=== PATIENT | male | born 1935 | race Caucasian/White ===

== ENCOUNTER 2020-02-17 16:48 | Inpatient (IN) ==
[2020-02-17 17:14] LABS: Basophils % 0.1 % (0.0-0.8); Eosinophils % 0.2 % (0.00-10.9); Hematocrit 33.4 VOL% (42.0-52.0); Hemoglobin 10.9 GM/DL (14.0-18.0); Immature Granulocytes % 22.2 %; Immature Granulocytes Absolute 2.08 #; Lymphocytes # 0.6 10*3/uL (1.4-4.0); Lymphocytes % 5.9 % (21.2-54.2); Mean Corpuscular HGB Conc 32.6 GM/DL (32-36); Mean Corpuscular Volume 99.4 FL (87-102); Mean Platelet Volume 9.7 FL (9.6-12.0); Monocytes % 17.6 % (1.7-12.7); Platelet Count 128 T/CUMM (130-400); Red Blood Count 3.36 MC/CUMM (3.8-5.5); Red Cell Distribution Width 16.6 % (9.3-17.3); White Blood Count 9.4 T/CUMM (4-12)
[2020-02-17 17:21] LABS: INR 1.2; PT Patient Result 12.4 SECS (9.8-11.9)
[2020-02-17 17:34] LABS: Bilirubin,Total 1.1 MG/DL (0.2-1.0); Calcium 8.2 MG/DL (8.5-10.1); Osmolality,Calculated 274.5 MOS/KG (273-304); Total Protein 7.2 G/DL (6.4-8.3)
[2020-02-17 17:45] LABS: Lymphocytes 6 % (20-55); Platelet Estimate Adequate; Segmented Neutrophils 79 % (50-85); Total Cells Counted 100
[2020-02-17] MEDS ORDERED: FUROSEMIDE 40 MG/4 ML VIAL IV STA (18:12)
[2020-02-17] MEDS ORDERED: ALBUTEROL/IPRATROPIUM 3 ML NEB RESP TX STA (18:12)
[2020-02-17] MEDS ORDERED: ENOXAPARIN 100 MG/ML SYRINGE SUBCUT STA (18:13)
[2020-02-17] MEDS ORDERED: GLUCAGON 1 MG VIAL IM PRN (18:19)
[2020-02-17] MEDS ORDERED: MAGNESIUM SULF RIDER 4 GM in PREMIX 1 EACH IV PRN (18:19)
[2020-02-17] MEDS ORDERED: DEXTROSE 50% 25 GM/50 ML VIAL IV PRN ×2 (18:19)
[2020-02-17] MEDS ORDERED: ZALEPLON 5 MG CAPSULE PO PRN (18:19)
[2020-02-17] MEDS ORDERED: MAGNESIUM SULF RIDER 2 GM in PREMIX 1 EACH IV PRN (18:19)
[2020-02-17] MEDS ORDERED: ONDANSETRON 4 MG/2 ML VIAL IV PRN (18:19)
[2020-02-18] MEDS: ENOXAPARIN 120 MG/0.8 ML SYRINGE SUBCUT SCH ×2 (06:02→19:00)
[2020-02-18 06:21] LABS: Basophils % 0.1 % (0.0-0.8); Eosinophils # 0.1 10*3/uL (0.0-0.87); Eosinophils % 0.5 % (0.00-10.9); Hemoglobin 10.2 GM/DL (14.0-18.0); Immature Granulocytes % 19.3 %; Immature Granulocytes Absolute 1.78 #; Lymphocytes # 0.5 10*3/uL (1.4-4.0); Lymphocytes % 5.3 % (21.2-54.2); Mean Corpuscular HGB Conc 32.9 GM/DL (32-36); Mean Corpuscular Volume 99.4 FL (87-102); Mean Platelet Volume 10.5 FL (9.6-12.0); Monocytes % 11.6 % (1.7-12.7); Neutrophils % 63.2 % (38.7-73.9); Platelet Count 107 T/CUMM (130-400); Red Blood Count 3.12 MC/CUMM (3.8-5.5); Red Cell Distribution Width 16.9 % (9.3-17.3); White Blood Count 9.2 T/CUMM (4-12)
[2020-02-18 06:40] LABS: Albumin 2.7 G/DL (3.4-5.0); Bilirubin,Total 1.6 MG/DL (0.2-1.0); Risk Ratio 2.48; Total Protein 6.5 G/DL (6.4-8.3); VLDL CHOLESTEROL 11.4 MG/DL
[2020-02-18 06:54] LABS: Eosinophils 2 % (0-10); Hypochromasia 1+; Lymphocytes 5 % (20-55); Platelet Estimate Decreased; Segmented Neutrophils 79 % (50-85); Total Cells Counted 100
[2020-02-18 06:55] LABS: Microcytosis 1+
[2020-02-18] MEDS: FUROSEMIDE 40 MG/4 ML VIAL IV SCH ×2 (09:14→15:44)
[2020-02-18] MEDS: PANTOPRAZOLE 40 MG TABLET PO SCH (09:14)
[2020-02-18] MEDS: SKIN HEALING OINT (AQUAPHOR) 50 GM TUBE TOP SCH (15:44)
[2020-02-18 21:38] LABS: Bilirubin,Urine Negative (Negative); Blood, Urine Negative (Negative); Glucose,Urine (UA) Negative (Negative); Hyaline Casts,Urine 15 /LPF (0-3); Ketones,Urine Negative (Negative); Mucus,Urine Occasional /LPF (Occasional); Nitrite,Urine Negative (Negative); Protein,Urine Negative; RBC,Urine 1 /HPF (0-4); Urine Appearance CLEAR (Clear); Urine Color Yellow (Yellow); Urine Specific Gravity 1.016 (1.001-1.035); Urine Urobilinogen < 2.0 EU/DL (0.2-1.0); WBC,Urine <1 /HPF (0-6)
[2020-02-19] MEDS: ENOXAPARIN 120 MG/0.8 ML SYRINGE SUBCUT SCH ×2 (06:01→17:39)
[2020-02-19 06:32] LABS: Eosinophils # 0.1 10*3/uL (0.0-0.87); Hematocrit 30.7 VOL% (42.0-52.0); Hemoglobin 10.2 GM/DL (14.0-18.0); Immature Granulocytes % 19.1 %; Immature Granulocytes Absolute 1.26 #; Lymphocytes # 0.7 10*3/uL (1.4-4.0); Lymphocytes % 10.3 % (21.2-54.2); Mean Corpuscular HGB Conc 33.2 GM/DL (32-36); Mean Corpuscular Volume 97.2 FL (87-102); Mean Platelet Volume 10.5 FL (9.6-12.0); Monocytes % 12.1 % (1.7-12.7); Neutrophils % 56.5 % (38.7-73.9); Platelet Count 122 T/CUMM (130-400); Red Blood Count 3.16 MC/CUMM (3.8-5.5); Red Cell Distribution Width 16.4 % (9.3-17.3); White Blood Count 6.6 T/CUMM (4-12)
[2020-02-19 06:59] LABS: Osmolality,Calculated 276.4 MOS/KG (273-304)
[2020-02-19 07:14] LABS: Band Neutrophils 1 % (0-10); Lymphocytes 6 % (20-55); Segmented Neutrophils 86 % (50-85); Total Cells Counted 100
[2020-02-19 07:15] LABS: Hypochromasia 1+; Microcytosis 1+; Platelet Estimate Adequate
[2020-02-19] MEDS: FUROSEMIDE 40 MG/4 ML VIAL IV SCH ×2 (10:32→17:39)
[2020-02-19] MEDS: PANTOPRAZOLE 40 MG TABLET PO SCH (10:32)
[2020-02-19] MEDS: SKIN HEALING OINT (AQUAPHOR) 50 GM TUBE TOP SCH (10:32)
[2020-02-20] MEDS: ENOXAPARIN 120 MG/0.8 ML SYRINGE SUBCUT SCH ×2 (05:10→17:48)
[2020-02-20 05:52] LABS: Basophils % 0.1 % (0.0-0.8); Eosinophils # 0.1 10*3/uL (0.0-0.87); Eosinophils % 1.3 % (0.00-10.9); Hematocrit 30.9 VOL% (42.0-52.0); Hemoglobin 10.2 GM/DL (14.0-18.0); Immature Granulocytes % 19.3 %; Immature Granulocytes Absolute 1.47 #; Lymphocytes # 0.5 10*3/uL (1.4-4.0); Lymphocytes % 6.6 % (21.2-54.2); Mean Corpuscular Volume 97.8 FL (87-102); Monocytes % 12.3 % (1.7-12.7); Neutrophils % 60.4 % (38.7-73.9); Platelet Count 125 T/CUMM (130-400); Red Blood Count 3.16 MC/CUMM (3.8-5.5); Red Cell Distribution Width 16.5 % (9.3-17.3); White Blood Count 7.6 T/CUMM (4-12)
[2020-02-20 06:08] LABS: Calcium 8.2 MG/DL (8.5-10.1); Osmolality,Calculated 272.4 MOS/KG (273-304)
[2020-02-20 08:07] LABS: Anisocytosis 1+; Band Neutrophils 16 % (0-10); Lymphocytes 4 % (20-55); Macrocytosis 1+; Platelet Estimate Adequate; Segmented Neutrophils 72 % (50-85); Total Cells Counted 100
[2020-02-20] MEDS: FUROSEMIDE 40 MG/4 ML VIAL IV SCH (09:37)
[2020-02-20] MEDS: PANTOPRAZOLE 40 MG TABLET PO SCH (09:39)
[2020-02-20] MEDS: SKIN HEALING OINT (AQUAPHOR) 50 GM TUBE TOP SCH (09:39)
[2020-02-20] MEDS: FUROSEMIDE 40 MG TABLET PO SCH ×2 (09:39→15:54)
[2020-02-21] MEDS: ENOXAPARIN 120 MG/0.8 ML SYRINGE SUBCUT SCH ×2 (05:41→17:36)
[2020-02-21 06:00] LABS: Basophils % 0.1 % (0.0-0.8); Eosinophils # 0.2 10*3/uL (0.0-0.87); Eosinophils % 2.1 % (0.00-10.9); Hematocrit 32.9 VOL% (42.0-52.0); Hemoglobin 10.7 GM/DL (14.0-18.0); Immature Granulocytes % 15.3 %; Immature Granulocytes Absolute 1.11 #; Lymphocytes # 0.8 10*3/uL (1.4-4.0); Lymphocytes % 11.3 % (21.2-54.2); Mean Corpuscular HGB Conc 32.5 GM/DL (32-36); Mean Corpuscular Volume 99.7 FL (87-102); Mean Platelet Volume 10.3 FL (9.6-12.0); Monocytes % 16.8 % (1.7-12.7); Neutrophils % 54.4 % (38.7-73.9); Platelet Count 115 T/CUMM (130-400); Red Cell Distribution Width 16.4 % (9.3-17.3); White Blood Count 7.3 T/CUMM (4-12)
[2020-02-21 06:18] LABS: Calcium 8.2 MG/DL (8.5-10.1); Osmolality,Calculated 277.1 MOS/KG (273-304)
[2020-02-21 06:50] LABS: Band Neutrophils 1 % (0-10); Eosinophils 2 % (0-10); Lymphocytes 9 % (20-55); Platelet Estimate Normal; Segmented Neutrophils 77 % (50-85); Total Cells Counted 100
[2020-02-21] MEDS: SKIN HEALING OINT (AQUAPHOR) 50 GM TUBE TOP SCH (08:52)
[2020-02-21] MEDS: FUROSEMIDE 40 MG TABLET PO SCH ×2 (08:52→15:02)
[2020-02-21] MEDS: PANTOPRAZOLE 40 MG TABLET PO SCH (08:52)
[2020-02-22] MEDS: ENOXAPARIN 120 MG/0.8 ML SYRINGE SUBCUT SCH (05:26)
[2020-02-22 05:40] LABS: Basophils % 0.2 % (0.0-0.8); Eosinophils # 0.1 10*3/uL (0.0-0.87); Eosinophils % 1.2 % (0.00-10.9); Hematocrit 31.6 VOL% (42.0-52.0); Hemoglobin 10.4 GM/DL (14.0-18.0); Immature Granulocytes % 20.3 %; Immature Granulocytes Absolute 1.31 #; Lymphocytes # 0.7 10*3/uL (1.4-4.0); Lymphocytes % 10.8 % (21.2-54.2); Mean Corpuscular HGB Conc 32.9 GM/DL (32-36); Mean Corpuscular Volume 97.5 FL (87-102); Mean Platelet Volume 10.1 FL (9.6-12.0); Monocytes % 14.2 % (1.7-12.7); Neutrophils % 53.3 % (38.7-73.9); Platelet Count 134 T/CUMM (130-400); Red Blood Count 3.24 MC/CUMM (3.8-5.5); Red Cell Distribution Width 15.9 % (9.3-17.3); White Blood Count 6.5 T/CUMM (4-12)
[2020-02-22 05:51] LABS: Calcium 8.3 MG/DL (8.5-10.1)
[2020-02-22 08:09] LABS: Band Neutrophils 4 % (0-10); Eosinophils 1 % (0-10); Hypochromasia 2+; Lymphocytes 14 % (20-55); Platelet Estimate Adequate; Polychromasia Slight; Segmented Neutrophils 75 % (50-85); Total Cells Counted 100
[2020-02-22] MEDS: FUROSEMIDE 40 MG TABLET PO SCH (08:55)
[2020-02-22] MEDS: PANTOPRAZOLE 40 MG TABLET PO SCH (08:55)
[2020-02-22] MEDS: SKIN HEALING OINT (AQUAPHOR) 50 GM TUBE TOP SCH (08:55)
[2020-02-22] MEDS ORDERED: carvediloL 3.125 MG TABLET PO SCH (14:30)
[2020-02-22] MEDS: ASPIRIN EC 81 MG TABLET PO SCH (15:32)
[2020-02-22] MEDS: METOPROLOL TARTRATE 25 MG TABLET PO SCH (15:33)
[2020-02-22] MEDS: LOSARTAN 25 MG TABLET PO SCH (15:33)
[2020-02-22] MEDS ORDERED: FUROSEMIDE 40 MG/4 ML VIAL IV SCH (16:00)
[2020-02-22] MEDS ORDERED: FUROSEMIDE 80 MG TABLET PO SCH (16:00)
[2020-02-22] MEDS: INSULIN REGULAR 100 UNIT/ML SUBCUT SCH ×2 (17:12→22:00)
[2020-02-22] MEDS: ENOXAPARIN 150 MG/ML SYRINGE SUBCUT SCH (18:20)
[2020-02-23] MEDS: ENOXAPARIN 150 MG/ML SYRINGE SUBCUT SCH ×2 (06:34→17:40)
[2020-02-23 08:52] LABS: Basophils % 0.1 % (0.0-0.8); Eosinophils # 0.1 10*3/uL (0.0-0.87); Eosinophils % 1.8 % (0.00-10.9); Immature Granulocytes % 19.9 %; Immature Granulocytes Absolute 1.33 #; Lymphocytes # 0.7 10*3/uL (1.4-4.0); Lymphocytes % 9.7 % (21.2-54.2); Mean Corpuscular HGB Conc 32.3 GM/DL (32-36); Mean Platelet Volume 9.9 FL (9.6-12.0); Monocytes % 14.8 % (1.7-12.7); Neutrophils % 53.7 % (38.7-73.9); Platelet Count 133 T/CUMM (130-400); White Blood Count 6.7 T/CUMM (4-12)
[2020-02-23] MEDS ORDERED: ENOXAPARIN 40 MG/0.4 ML SYRINGE SUBCUT SCH (09:00)
[2020-02-23 09:03] LABS: Calcium 8.1 MG/DL (8.5-10.1)
[2020-02-23 09:17] LABS: ABG Base Excess 2.7 MMOL/L (-2.5-2.5); ABG HCO3 26.8 MMOL/L (20-26); ABG Oxygen Saturation 98.4 % (95-100); ABG PCO2 50.1 MM HG (35-48); ABG PH 7.368 (7.35-7.45); ABG TCO2 26.2 MMOL/L (23-27)
[2020-02-23] MEDS: metOLazone 5 MG TABLET PO SCH (09:50)
[2020-02-23] MEDS: LOSARTAN 25 MG TABLET PO SCH (09:50)
[2020-02-23] MEDS: PANTOPRAZOLE 40 MG TABLET PO SCH (09:50)
[2020-02-23] MEDS: INSULIN REGULAR 100 UNIT/ML SUBCUT SCH ×4 (09:50→21:26)
[2020-02-23] MEDS: METOPROLOL TARTRATE 25 MG TABLET PO SCH (09:50)
[2020-02-23] MEDS: FUROSEMIDE 40 MG/4 ML VIAL IV SCH ×2 (09:50→16:47)
[2020-02-23] MEDS: ASPIRIN EC 81 MG TABLET PO SCH (09:50)
[2020-02-23 10:26] LABS: Anisocytosis 1+; Band Neutrophils 20 % (0-10); Eosinophils 1 % (0-10); Lymphocytes 9 % (20-55); Macrocytosis 1+; Platelet Estimate Adequate; Segmented Neutrophils 57 % (50-85); Total Cells Counted 100
[2020-02-23] MEDS ORDERED: METOPROLOL TARTRATE 25 MG TABLET PO ONE (11:00)
[2020-02-23] MEDS: SKIN HEALING OINT (AQUAPHOR) 50 GM TUBE TOP SCH (11:03)
[2020-02-23] MEDS: SILDENAFIL 20 MG TABLET PO SCH (21:26)
[2020-02-23] MEDS: SPIRONOLACTONE 25 MG TABLET PO SCH (21:26)
[2020-02-24] MEDS: ACETAMINOPHEN 325 MG TABLET PO PRN (03:42)
[2020-02-24] MEDS ORDERED: METOPROLOL TARTRATE 5 MG/5 ML VIAL IV ONE (05:05)
[2020-02-24 05:37] LABS: Basophils % 0.1 % (0.0-0.8); Eosinophils # 0.1 10*3/uL (0.0-0.87); Hematocrit 26.7 VOL% (42.0-52.0); Hemoglobin 8.9 GM/DL (14.0-18.0); Immature Granulocytes % 16.5 %; Immature Granulocytes Absolute 1.28 #; Lymphocytes % 12.6 % (21.2-54.2); Mean Corpuscular HGB Conc 33.3 GM/DL (32-36); Mean Corpuscular Volume 96.4 FL (87-102); Mean Platelet Volume 10.4 FL (9.6-12.0); Monocytes % 12.4 % (1.7-12.7); Neutrophils % 57.4 % (38.7-73.9); Platelet Count 132 T/CUMM (130-400); Red Blood Count 2.77 MC/CUMM (3.8-5.5); Red Cell Distribution Width 15.6 % (9.3-17.3); White Blood Count 7.8 T/CUMM (4-12)
[2020-02-24 06:08] LABS: Calcium 8.4 MG/DL (8.5-10.1)
[2020-02-24] MEDS: ENOXAPARIN 150 MG/ML SYRINGE SUBCUT SCH (06:42)
[2020-02-24 07:17] LABS: Eosinophils 1 % (0-10); Hypochromasia 2+; Lymphocytes 14 % (20-55); Metamyelocytes 3 %; Platelet Estimate Decreased; Segmented Neutrophils 72 % (50-85); Total Cells Counted 100
[2020-02-24 07:18] LABS: Anisocytosis 1+; Macrocytosis 1+
[2020-02-24] MEDS: POTASSIUM CHLORIDE 20 MEQ TABLET PO SCH (08:32)
[2020-02-24] MEDS: INSULIN REGULAR 100 UNIT/ML SUBCUT SCH ×4 (08:32→22:29)
[2020-02-24] MEDS: metOLazone 5 MG TABLET PO SCH (08:32)
[2020-02-24] MEDS: SILDENAFIL 20 MG TABLET PO SCH ×3 (08:32→22:28)
[2020-02-24] MEDS: SPIRONOLACTONE 25 MG TABLET PO SCH ×2 (08:33→22:28)
[2020-02-24] MEDS: PANTOPRAZOLE 40 MG TABLET PO SCH (08:33)
[2020-02-24] MEDS: METOPROLOL TARTRATE 25 MG TABLET PO SCH (08:33)
[2020-02-24] MEDS: ASPIRIN EC 81 MG TABLET PO SCH (08:33)
[2020-02-24] MEDS: LOSARTAN 25 MG TABLET PO SCH (08:33)
[2020-02-24] MEDS: DILTIAZEM CD 180 MG CAPSULE PO SCH (08:34)
[2020-02-24] MEDS: FUROSEMIDE 40 MG/4 ML VIAL IV SCH ×2 (08:34→15:59)
[2020-02-24] MEDS: SKIN HEALING OINT (AQUAPHOR) 50 GM TUBE TOP SCH (08:34)
[2020-02-24] MEDS ORDERED: DILTIAZEM CD 180 MG CAPSULE PO SCH (09:00)
[2020-02-24] MEDS: AMPICILLIN/SULBACTAM 3,000 MG in SODIUM CHLORIDE 0.9% 100 ML IV SCH ×2 (15:59→22:28)
[2020-02-24] MEDS: APIXABAN 5 MG TABLET PO SCH (22:28)
[2020-02-25] MEDS: AMPICILLIN/SULBACTAM 3,000 MG in SODIUM CHLORIDE 0.9% 100 ML IV SCH ×2 (03:33→10:26)
[2020-02-25 05:50] LABS: Basophils % 0.1 % (0.0-0.8); Eosinophils % 0.3 % (0.00-10.9); Hematocrit 24.5 VOL% (42.0-52.0); Immature Granulocytes % 18.2 %; Immature Granulocytes Absolute 1.74 #; Lymphocytes # 1.1 10*3/uL (1.4-4.0); Lymphocytes % 11.9 % (21.2-54.2); Mean Corpuscular HGB Conc 32.7 GM/DL (32-36); Mean Corpuscular Volume 96.5 FL (87-102); Mean Platelet Volume 10.5 FL (9.6-12.0); Neutrophils % 57.5 % (38.7-73.9); Platelet Count 127 T/CUMM (130-400); Red Blood Count 2.54 MC/CUMM (3.8-5.5); Red Cell Distribution Width 15.9 % (9.3-17.3); White Blood Count 9.6 T/CUMM (4-12)
[2020-02-25 06:20] LABS: Calcium 8.5 MG/DL (8.5-10.1); Osmolality,Calculated 277.1 MOS/KG (273-304)
[2020-02-25 06:26] LABS: Anisocytosis 2+; Band Neutrophils 15 % (0-10); Lymphocytes 12 % (20-55); Macrocytosis Slight; Platelet Estimate Adequate; Segmented Neutrophils 64 % (50-85); Total Cells Counted 100
[2020-02-25 06:27] LABS: Hypochromasia Slight
[2020-02-25] MEDS ORDERED: LIDOCAINE 2% 5 ML VIAL ONE (06:27)
[2020-02-25] MEDS ORDERED: propofoL 200 MG/20 ML VIAL IV ONE (06:27)
[2020-02-25] MEDS ORDERED: DEXMEDETOMIDINE 200 MCG/2 ML VIAL ONE (06:27)
[2020-02-25] MEDS ORDERED: fentaNYL 100 MCG/2 ML VIAL ONE (06:27)
[2020-02-25] MEDS ORDERED: LIDOCAINE 1% 20 ML VIAL ONE (06:55)
[2020-02-25] MEDS ORDERED: BUPIVACAINE MPF 0.25% 30 ML VIAL ONE (06:55)
[2020-02-25] MEDS ORDERED: KETAMINE 500 MG/10 ML VIAL ONE (07:39)
[2020-02-25] MEDS ORDERED: PHENYLEPHRINE 1 MG/10 ML SYRINGE IV ONE (08:07)
[2020-02-25] MEDS: SILDENAFIL 20 MG TABLET PO SCH ×3 (09:46→21:10)
[2020-02-25] MEDS: metOLazone 5 MG TABLET PO SCH (09:47)
[2020-02-25] MEDS: SKIN HEALING OINT (AQUAPHOR) 50 GM TUBE TOP SCH (09:47)
[2020-02-25] MEDS: SPIRONOLACTONE 25 MG TABLET PO SCH ×3 (09:47→22:07)
[2020-02-25] MEDS: POTASSIUM CHLORIDE 20 MEQ TABLET PO SCH ×2 (09:47→21:10)
[2020-02-25] MEDS: APIXABAN 5 MG TABLET PO SCH ×3 (09:47→21:28)
[2020-02-25] MEDS: ASPIRIN EC 81 MG TABLET PO SCH (09:47)
[2020-02-25] MEDS: PANTOPRAZOLE 40 MG TABLET PO SCH (09:47)
[2020-02-25] MEDS: DILTIAZEM CD 180 MG CAPSULE PO SCH ×2 (09:59→17:42)
[2020-02-25] MEDS: METOPROLOL TARTRATE 25 MG TABLET PO SCH ×2 (10:00→17:42)
[2020-02-25] MEDS: LOSARTAN 25 MG TABLET PO SCH (10:00)
[2020-02-25] MEDS: FUROSEMIDE 40 MG/4 ML VIAL IV SCH (10:26)
[2020-02-25] MEDS: INSULIN REGULAR 100 UNIT/ML SUBCUT SCH ×4 (10:26→21:11)
[2020-02-25] MEDS ORDERED: POTASSIUM CHLORIDE 20 MEQ TABLET PO ONE (13:10)
[2020-02-25] MEDS ORDERED: FUROSEMIDE 40 MG/4 ML VIAL IV SCH (13:17)
[2020-02-25] MEDS: PIPERACILLIN/TAZOBACTAM 3,375 MG in SODIUM CHLORIDE 0.9% 100 ML IV SCH ×2 (15:23→21:13)
[2020-02-25] MEDS ORDERED: MORPHINE 4 MG/1 ML VIAL IM PRN (15:39)
[2020-02-26] MEDS: PIPERACILLIN/TAZOBACTAM 3,375 MG in SODIUM CHLORIDE 0.9% 100 ML IV SCH ×2 (05:27→17:38)
[2020-02-26 05:42] LABS: Basophils % 0.1 % (0.0-0.8); Eosinophils % 0.3 % (0.00-10.9); Hematocrit 21.8 VOL% (42.0-52.0); Hemoglobin 7.1 GM/DL (14.0-18.0); Immature Granulocytes % 16.6 %; Immature Granulocytes Absolute 2.19 #; Lymphocytes % 15.4 % (21.2-54.2); Mean Corpuscular HGB Conc 32.6 GM/DL (32-36); Mean Corpuscular Volume 97.3 FL (87-102); Monocytes % 13.5 % (1.7-12.7); Neutrophils % 54.1 % (38.7-73.9); Platelet Count 169 T/CUMM (130-400); Red Blood Count 2.24 MC/CUMM (3.8-5.5); White Blood Count 13.2 T/CUMM (4-12)
[2020-02-26 06:28] LABS: Lymphocytes 10 % (20-55); Platelet Estimate Normal; Segmented Neutrophils 77 % (50-85); Total Cells Counted 100
[2020-02-26 06:29] LABS: Hypochromasia 1+
[2020-02-26 06:39] LABS: Calcium 8.3 MG/DL (8.5-10.1); Osmolality,Calculated 277.2 MOS/KG (273-304)
[2020-02-26] MEDS: SKIN HEALING OINT (AQUAPHOR) 50 GM TUBE TOP SCH (09:00)
[2020-02-26] MEDS: INSULIN REGULAR 100 UNIT/ML SUBCUT SCH ×4 (09:25→22:45)
[2020-02-26] MEDS: PANTOPRAZOLE 40 MG TABLET PO SCH (09:28)
[2020-02-26] MEDS: SPIRONOLACTONE 25 MG TABLET PO SCH (09:30)
[2020-02-26] MEDS: POTASSIUM CHLORIDE 20 MEQ TABLET PO SCH (09:31)
[2020-02-26] MEDS: LOSARTAN 25 MG TABLET PO SCH (09:32)
[2020-02-26] MEDS: ASPIRIN EC 81 MG TABLET PO SCH (09:33)
[2020-02-26] MEDS ORDERED: SODIUM CHLORIDE 0.9% 1,000 ML IV PRN (09:44)
[2020-02-26] MEDS ORDERED: DILTIAZEM CD 120 MG CAPSULE PO SCH (09:48)
[2020-02-26] MEDS: SILDENAFIL 20 MG TABLET PO SCH (11:54)
[2020-02-26] MEDS: LACTULOSE 20 GM/30 ML UDCUP PO SCH (12:00)
[2020-02-26 13:47] LABS: Bilirubin,Urine Negative (Negative); Blood, Urine Moderate mg/dL (Negative); Glucose,Urine (UA) Negative (Negative); Hyaline Casts,Urine 1 /LPF (0-3); Ketones,Urine Negative (Negative); Mucus,Urine Occasional /LPF (Occasional); Nitrite,Urine Negative (Negative); Protein,Urine Negative; RBC,Urine 10 /HPF (0-4); Squamous Epithelial Cell,Urine Occasional /HPF (0-10); Urine Appearance CLEAR (Clear); Urine Color Yellow (Yellow); Urine Specific Gravity 1.009 (1.001-1.035); Urine Urobilinogen < 2.0 EU/DL (0.2-1.0); WBC,Urine 1 /HPF (0-6)
[2020-02-26] MEDS ORDERED: RIVASTIGMINE 9.5 MG/24 HR PATCH TRANSDERM SCH (15:30)
[2020-02-26 16:46] LABS: ABG Base Excess 11.9 MMOL/L (-2.5-2.5); ABG HCO3 35.7 MMOL/L (20-26); ABG Oxygen Saturation 97.1 % (95-100); ABG PCO2 46.4 MM HG (35-48); ABG PH 7.503 (7.35-7.45); ABG PO2 87.1 MM HG (80-95); ABG TCO2 34.2 MMOL/L (23-27)
[2020-02-26] MEDS: SERTRALINE 25 MG TABLET PO SCH (16:56)
[2020-02-26] MEDS ORDERED: DIGOXIN 0.5 MG/2 ML AMP IV ONE (17:00)
[2020-02-26] MEDS: RIVASTIGMINE 4.6 MG/24 HR PATCH TRANSDERM SCH (17:37)
[2020-02-26] MEDS ORDERED: ACETAMINOPHEN 650 MG SUPP RECTAL ONE (22:03)
[2020-02-26] MEDS ORDERED: KETOROLAC 15 MG/1 ML VIAL IV ONE (22:04)
[2020-02-27] MEDS: PANTOPRAZOLE 40 MG VIAL IV SCH ×3 (01:16→20:50)
[2020-02-27] MEDS: PIPERACILLIN/TAZOBACTAM 3,375 MG in SODIUM CHLORIDE 0.9% 100 ML IV SCH ×3 (01:20→18:20)
[2020-02-27 02:41] LABS: Hematocrit 20.3 VOL% (42.0-52.0)
[2020-02-27 02:58] LABS: Calcium 7.9 MG/DL (8.5-10.1); Osmolality,Calculated 290.8 MOS/KG (273-304)
[2020-02-27] MEDS: SILDENAFIL 20 MG TABLET PO SCH ×3 (03:30→15:00)
[2020-02-27] MEDS: DILTIAZEM 60 MG TABLET PO SCH ×3 (03:30→15:00)
[2020-02-27] MEDS: POTASSIUM CHLORIDE 20 MEQ TABLET PO SCH ×2 (03:30→09:00)
[2020-02-27] MEDS: DONEPEZIL 10 MG TABLET PO SCH (03:30)
[2020-02-27] MEDS: METOPROLOL TARTRATE 25 MG TABLET PO SCH ×2 (03:30→09:00)
[2020-02-27] MEDS: LACTULOSE 20 GM/30 ML UDCUP PO SCH ×2 (03:30→09:00)
[2020-02-27 06:01] LABS: Eosinophils % 0.4 % (0.00-10.9); Hematocrit 21.6 VOL% (42.0-52.0); Hemoglobin 7.3 GM/DL (14.0-18.0); Immature Granulocytes % 18.4 %; Immature Granulocytes Absolute 1.97 #; Mean Corpuscular HGB Conc 33.8 GM/DL (32-36); Mean Platelet Volume 10.6 FL (9.6-12.0); Monocytes % 12.6 % (1.7-12.7); Neutrophils % 59.6 % (38.7-73.9); Platelet Count 130 T/CUMM (130-400); Red Blood Count 2.25 MC/CUMM (3.8-5.5); Red Cell Distribution Width 15.8 % (9.3-17.3); White Blood Count 10.7 T/CUMM (4-12)
[2020-02-27 06:38] LABS: Lymphocytes 8 % (20-55); Metamyelocytes 1 %; Segmented Neutrophils 86 % (50-85); Total Cells Counted 100
[2020-02-27 06:39] LABS: Anisocytosis 1+; Hypochromasia 2+; Macrocytosis 1+
[2020-02-27 06:40] LABS: Ovalocytes Slight; Platelet Estimate Adequate; Polychromasia Slight; Target Cells Slight
[2020-02-27] MEDS ORDERED: SODIUM CHLORIDE 0.9% 1,000 ML IV PRN ×2 (08:42→15:53)
[2020-02-27] MEDS: SERTRALINE 25 MG TABLET PO SCH (09:00)
[2020-02-27] MEDS ORDERED: ENOXAPARIN 30 MG/0.3 ML SYRINGE SUBCUT SCH (09:00)
[2020-02-27] MEDS: INSULIN REGULAR 100 UNIT/ML SUBCUT SCH ×3 (10:18→18:20)
[2020-02-27] MEDS: SKIN HEALING OINT (AQUAPHOR) 50 GM TUBE TOP SCH (10:19)
[2020-02-27] MEDS: RIVASTIGMINE 4.6 MG/24 HR PATCH TRANSDERM SCH (10:44)
[2020-02-27 11:20] LABS: Ferritin 681.2 ng/ml (26-388)
[2020-02-27] MEDS ORDERED: DEXMEDETOMIDINE 200 MCG/2 ML VIAL ONE (12:12)
[2020-02-27] MEDS ORDERED: KETAMINE 500 MG/10 ML VIAL ONE (12:12)
[2020-02-27 16:38] LABS: Hematocrit 22.5 VOL% (42.0-52.0); Hemoglobin 7.6 GM/DL (14.0-18.0)
[2020-02-27 22:03] LABS: Hematocrit 23.1 VOL% (42.0-52.0); Hemoglobin 7.8 GM/DL (14.0-18.0)
[2020-02-28] MEDS: INSULIN REGULAR 100 UNIT/ML SUBCUT SCH ×5 (01:23→22:45)
[2020-02-28] MEDS: PIPERACILLIN/TAZOBACTAM 3,375 MG in SODIUM CHLORIDE 0.9% 100 ML IV SCH ×3 (01:47→17:01)
[2020-02-28] MEDS: DONEPEZIL 10 MG TABLET PO SCH ×2 (03:03→23:15)
[2020-02-28] MEDS: LACTULOSE 20 GM/30 ML UDCUP PO SCH ×2 (03:04→12:11)
[2020-02-28] MEDS: POTASSIUM CHLORIDE 20 MEQ TABLET PO SCH ×2 (03:04→09:46)
[2020-02-28] MEDS: SILDENAFIL 20 MG TABLET PO SCH ×4 (03:04→23:15)
[2020-02-28] MEDS: METOPROLOL TARTRATE 25 MG TABLET PO SCH ×3 (03:04→21:50)
[2020-02-28] MEDS: DILTIAZEM 60 MG TABLET PO SCH ×3 (03:04→16:48)
[2020-02-28 05:49] LABS: Basophils % 0.1 % (0.0-0.8); Eosinophils # 0.1 10*3/uL (0.0-0.87); Eosinophils % 1.1 % (0.00-10.9); Hematocrit 22.4 VOL% (42.0-52.0); Hemoglobin 7.5 GM/DL (14.0-18.0); Immature Granulocytes % 19.1 %; Immature Granulocytes Absolute 1.86 #; Lymphocytes # 1.3 10*3/uL (1.4-4.0); Lymphocytes % 12.9 % (21.2-54.2); Mean Corpuscular HGB Conc 33.5 GM/DL (32-36); Mean Corpuscular Volume 94.1 FL (87-102); Mean Platelet Volume 10.7 FL (9.6-12.0); Monocytes % 9.9 % (1.7-12.7); NRBC # 0.02 10*3/uL; Neutrophils % 56.9 % (38.7-73.9); Platelet Count 154 T/CUMM (130-400); Red Blood Count 2.38 MC/CUMM (3.8-5.5); Red Cell Distribution Width 16.2 % (9.3-17.3); White Blood Count 9.7 T/CUMM (4-12)
[2020-02-28 06:04] LABS: Calcium 8.2 MG/DL (8.5-10.1); Osmolality,Calculated 296.3 MOS/KG (273-304)
[2020-02-28 06:24] LABS: Band Neutrophils 2 % (0-10); Eosinophils 1 % (0-10); Lymphocytes 10 % (20-55); Myelocytes 2 %; Segmented Neutrophils 79 % (50-85); Total Cells Counted 100
[2020-02-28 06:25] LABS: Anisocytosis 1+; Hypochromasia 2+; Macrocytosis 1+
[2020-02-28 06:26] LABS: Platelet Estimate Adequate
[2020-02-28] MEDS ORDERED: POTASSIUM CHLORIDE RIDER 10 MEQ in PREMIX 1 EACH IV PRN (08:47)
[2020-02-28] MEDS: SKIN HEALING OINT (AQUAPHOR) 50 GM TUBE TOP SCH (09:42)
[2020-02-28] MEDS: PANTOPRAZOLE 40 MG VIAL IV SCH ×2 (09:43→21:19)
[2020-02-28] MEDS: RIVASTIGMINE 4.6 MG/24 HR PATCH TRANSDERM SCH (09:50)
[2020-02-28] MEDS: SERTRALINE 25 MG TABLET PO SCH (12:12)
[2020-02-28] MEDS: INSULIN GLARGINE 100 UNIT/ML SUBCUT SCH (16:35)
[2020-02-28] MEDS: POTASSIUM CHLORIDE 20 MEQ/15 ML UDCUP PO SCH (21:30)
[2020-02-29] MEDS: LACTULOSE 20 GM/30 ML UDCUP PO SCH ×3 (00:36→21:41)
[2020-02-29] MEDS: DILTIAZEM 60 MG TABLET PO SCH ×4 (00:41→21:41)
[2020-02-29] MEDS: PIPERACILLIN/TAZOBACTAM 3,375 MG in SODIUM CHLORIDE 0.9% 100 ML IV SCH ×2 (02:32→10:58)
[2020-02-29 06:22] LABS: Basophils % 0.1 % (0.0-0.8); Eosinophils # 0.2 10*3/uL (0.0-0.87); Eosinophils % 3.1 % (0.00-10.9); Hematocrit 23.4 VOL% (42.0-52.0); Hemoglobin 7.5 GM/DL (14.0-18.0); Immature Granulocytes % 19.2 %; Immature Granulocytes Absolute 1.41 #; Lymphocytes # 0.9 10*3/uL (1.4-4.0); Lymphocytes % 12.4 % (21.2-54.2); Mean Corpuscular HGB Conc 32.1 GM/DL (32-36); Mean Corpuscular Volume 97.1 FL (87-102); Mean Platelet Volume 10.3 FL (9.6-12.0); NRBC # 0.02 10*3/uL; Neutrophils % 55.2 % (38.7-73.9); Platelet Count 175 T/CUMM (130-400); Red Blood Count 2.41 MC/CUMM (3.8-5.5); Red Cell Distribution Width 16.3 % (9.3-17.3); White Blood Count 7.3 T/CUMM (4-12)
[2020-02-29 06:42] LABS: INR 1.1; PT Patient Result 11.9 SECS (9.8-11.9); Partial Thromboplastin Time 33.9 SECS (23.9-33.8)
[2020-02-29 06:46] LABS: Eosinophils 2 % (0-10); Lymphocytes 16 % (20-55); Platelet Estimate Normal; Segmented Neutrophils 77 % (50-85); Total Cells Counted 100
[2020-02-29 06:47] LABS: Hypochromasia Slight
[2020-02-29 06:53] LABS: Albumin 1.9 G/DL (3.4-5.0); Bilirubin,Total 2.4 MG/DL (0.2-1.0); Calcium 8.3 MG/DL (8.5-10.1); Total Protein 6.2 G/DL (6.4-8.3)
[2020-02-29] MEDS: PANTOPRAZOLE 40 MG VIAL IV SCH ×2 (10:35→21:40)
[2020-02-29] MEDS: INSULIN REGULAR 100 UNIT/ML SUBCUT SCH ×4 (10:36→21:41)
[2020-02-29] MEDS: INSULIN GLARGINE 100 UNIT/ML SUBCUT SCH ×2 (10:36→16:37)
[2020-02-29] MEDS: POTASSIUM CHLORIDE 20 MEQ/15 ML UDCUP PO SCH ×2 (10:37→21:40)
[2020-02-29] MEDS: SILDENAFIL 20 MG TABLET PO SCH ×3 (10:37→21:40)
[2020-02-29] MEDS: SIMVASTATIN 20 MG TABLET PO SCH (10:37)
[2020-02-29] MEDS: SKIN HEALING OINT (AQUAPHOR) 50 GM TUBE TOP SCH (10:37)
[2020-02-29] MEDS: METOPROLOL TARTRATE 25 MG TABLET PO SCH ×2 (10:37→21:40)
[2020-02-29] MEDS: TAMSULOSIN 0.4 MG CAPSULE PO SCH (10:37)
[2020-02-29] MEDS: SERTRALINE 25 MG TABLET PO SCH (10:38)
[2020-02-29] MEDS: RIVASTIGMINE 4.6 MG/24 HR PATCH TRANSDERM SCH (10:38)
[2020-02-29] MEDS ORDERED: POTASSIUM CHLORIDE 20 MEQ/15 ML UDCUP PO ONE (14:00)
[2020-02-29] MEDS: AMOXICILLIN/CLAV 500 MG TABLET PO SCH (16:37)
[2020-02-29] MEDS: DONEPEZIL 10 MG TABLET PO SCH (21:40)
[2020-03-01 05:41] LABS: Basophils % 0.1 % (0.0-0.8); Eosinophils # 0.2 10*3/uL (0.0-0.87); Hematocrit 24.8 VOL% (42.0-52.0); Hemoglobin 8.1 GM/DL (14.0-18.0); Immature Granulocytes % 20.3 %; Immature Granulocytes Absolute 1.43 #; Lymphocytes # 1.2 10*3/uL (1.4-4.0); Lymphocytes % 17.6 % (21.2-54.2); Mean Corpuscular HGB Conc 32.7 GM/DL (32-36); Mean Corpuscular Volume 98.4 FL (87-102); Mean Platelet Volume 10.8 FL (9.6-12.0); Monocytes % 11.9 % (1.7-12.7); NRBC # 0.03 10*3/uL; Neutrophils % 47.1 % (38.7-73.9); Platelet Count 186 T/CUMM (130-400); Red Blood Count 2.52 MC/CUMM (3.8-5.5)
[2020-03-01 06:01] LABS: Albumin 2.1 G/DL (3.4-5.0); Bilirubin,Total 2.6 MG/DL (0.2-1.0); Calcium 8.3 MG/DL (8.5-10.1); Osmolality,Calculated 288.5 MOS/KG (273-304); Total Protein 6.4 G/DL (6.4-8.3)
[2020-03-01 06:07] LABS: Band Neutrophils 1 % (0-10); Eosinophils 5 % (0-10); Hypochromasia 1+; Lymphocytes 15 % (20-55); Microcytosis 1+; Platelet Estimate Adequate; Segmented Neutrophils 70 % (50-85); Total Cells Counted 100
[2020-03-01] MEDS: LACTULOSE 20 GM/30 ML UDCUP PO SCH ×2 (09:24→20:31)
[2020-03-01] MEDS: POTASSIUM CHLORIDE 20 MEQ/15 ML UDCUP PO SCH ×2 (09:24→20:31)
[2020-03-01] MEDS: DILTIAZEM 60 MG TABLET PO SCH ×3 (09:25→20:32)
[2020-03-01] MEDS: AMOXICILLIN/CLAV 500 MG TABLET PO SCH ×2 (09:25→16:05)
[2020-03-01] MEDS: SIMVASTATIN 20 MG TABLET PO SCH (09:25)
[2020-03-01] MEDS: SILDENAFIL 20 MG TABLET PO SCH ×3 (09:26→20:31)
[2020-03-01] MEDS: METOPROLOL TARTRATE 25 MG TABLET PO SCH ×2 (09:26→20:32)
[2020-03-01] MEDS: SERTRALINE 25 MG TABLET PO SCH (09:26)
[2020-03-01] MEDS: INSULIN REGULAR 100 UNIT/ML SUBCUT SCH ×4 (09:31→21:30)
[2020-03-01] MEDS: PANTOPRAZOLE 40 MG VIAL IV SCH ×2 (09:31→21:56)
[2020-03-01] MEDS: INSULIN GLARGINE 100 UNIT/ML SUBCUT SCH ×2 (09:32→16:05)
[2020-03-01] MEDS: RIVASTIGMINE 4.6 MG/24 HR PATCH TRANSDERM SCH (09:33)
[2020-03-01] MEDS: SKIN HEALING OINT (AQUAPHOR) 50 GM TUBE TOP SCH (09:55)
[2020-03-01] MEDS: TAMSULOSIN 0.4 MG CAPSULE PO SCH (09:56)
[2020-03-01] MEDS: DONEPEZIL 10 MG TABLET PO SCH (20:31)
[2020-03-02 06:59] LABS: Bilirubin,Total 2.5 MG/DL (0.2-1.0); Calcium 8.3 MG/DL (8.5-10.1); Osmolality,Calculated 284.7 MOS/KG (273-304); Total Protein 6.4 G/DL (6.4-8.3)
[2020-03-02 09:06] LABS: Basophils % 0.1 % (0.0-0.8); Eosinophils # 0.2 10*3/uL (0.0-0.87); Hematocrit 24.2 VOL% (42.0-52.0); Hemoglobin 7.8 GM/DL (14.0-18.0); Immature Granulocytes Absolute 0.97 #; Lymphocytes # 1.3 10*3/uL (1.4-4.0); Lymphocytes % 18.5 % (21.2-54.2); Mean Corpuscular HGB Conc 32.2 GM/DL (32-36); Mean Corpuscular Volume 98.8 FL (87-102); Mean Platelet Volume 10.1 FL (9.6-12.0); Monocytes % 14.3 % (1.7-12.7); NRBC # 0.06 10*3/uL; Neutrophils % 50.1 % (38.7-73.9); Platelet Count 193 T/CUMM (130-400); Red Blood Count 2.45 MC/CUMM (3.8-5.5); Red Cell Distribution Width 16.4 % (9.3-17.3); White Blood Count 6.9 T/CUMM (4-12)
[2020-03-02 09:26] LABS: % Iron Saturation 76.2 % (18-50)
[2020-03-02 09:36] LABS: Eosinophils 4 % (0-10); Hypochromasia 1+; Lymphocytes 19 % (20-55); Microcytosis 1+; Nucleated Red Blood Cells 1 (0-5); Platelet Estimate Adequate; Segmented Neutrophils 68 % (50-85); Total Cells Counted 100
[2020-03-02] MEDS: INSULIN REGULAR 100 UNIT/ML SUBCUT SCH ×4 (14:12→23:30)
[2020-03-02] MEDS: AMOXICILLIN/CLAV 500 MG TABLET PO SCH ×2 (14:13→18:49)
[2020-03-02] MEDS: METOPROLOL TARTRATE 25 MG TABLET PO SCH ×2 (14:13→23:03)
[2020-03-02] MEDS: SILDENAFIL 20 MG TABLET PO SCH ×3 (14:13→23:29)
[2020-03-02] MEDS: POTASSIUM CHLORIDE 20 MEQ/15 ML UDCUP PO SCH ×2 (14:13→23:27)
[2020-03-02] MEDS: LACTULOSE 20 GM/30 ML UDCUP PO SCH ×2 (14:13→23:29)
[2020-03-02] MEDS: RIVASTIGMINE 4.6 MG/24 HR PATCH TRANSDERM SCH (14:14)
[2020-03-02] MEDS: DILTIAZEM 60 MG TABLET PO SCH ×3 (14:14→23:28)
[2020-03-02] MEDS: PANTOPRAZOLE 40 MG VIAL IV SCH ×2 (14:16→23:30)
[2020-03-02] MEDS: SERTRALINE 25 MG TABLET PO SCH (14:16)
[2020-03-02] MEDS: TAMSULOSIN 0.4 MG CAPSULE PO SCH (14:21)
[2020-03-02] MEDS: INSULIN GLARGINE 100 UNIT/ML SUBCUT SCH ×2 (14:21→18:49)
[2020-03-02] MEDS: SKIN HEALING OINT (AQUAPHOR) 50 GM TUBE TOP SCH (14:22)
[2020-03-02] MEDS: SIMVASTATIN 20 MG TABLET PO SCH (23:28)
[2020-03-02] MEDS: DONEPEZIL 10 MG TABLET PO SCH (23:28)
[2020-03-03] MEDS: RIVASTIGMINE 4.6 MG/24 HR PATCH TRANSDERM SCH (11:51)
[2020-03-03] MEDS: SKIN HEALING OINT (AQUAPHOR) 50 GM TUBE TOP SCH (11:52)
[2020-03-03] MEDS: PANTOPRAZOLE 40 MG VIAL IV SCH ×2 (11:52→21:37)
[2020-03-03] MEDS: INSULIN GLARGINE 100 UNIT/ML SUBCUT SCH ×2 (11:53→18:11)
[2020-03-03] MEDS: SILDENAFIL 20 MG TABLET PO SCH ×3 (11:54→21:37)
[2020-03-03] MEDS: AMOXICILLIN/CLAV 500 MG TABLET PO SCH ×2 (11:54→18:10)
[2020-03-03] MEDS: DILTIAZEM 60 MG TABLET PO SCH ×3 (11:54→21:37)
[2020-03-03] MEDS: POTASSIUM CHLORIDE 20 MEQ/15 ML UDCUP PO SCH ×2 (11:54→21:36)
[2020-03-03] MEDS: METOPROLOL TARTRATE 25 MG TABLET PO SCH ×2 (11:54→21:37)
[2020-03-03] MEDS: TAMSULOSIN 0.4 MG CAPSULE PO SCH (11:55)
[2020-03-03] MEDS: LACTULOSE 20 GM/30 ML UDCUP PO SCH ×2 (11:55→21:37)
[2020-03-03] MEDS: SERTRALINE 25 MG TABLET PO SCH (11:55)
[2020-03-03] MEDS: INSULIN REGULAR 100 UNIT/ML SUBCUT SCH ×4 (11:57→21:36)
[2020-03-03] MEDS ORDERED: TUBERCULIN SKIN TEST 0.1 ML SYRINGE INTRADERM ONE (16:07)
[2020-03-03] MEDS: SIMVASTATIN 20 MG TABLET PO SCH (21:37)
[2020-03-03] MEDS: DONEPEZIL 10 MG TABLET PO SCH (21:37)
[2020-03-04] MEDS: INSULIN REGULAR 100 UNIT/ML SUBCUT SCH ×4 (09:27→20:48)
[2020-03-04] MEDS: INSULIN GLARGINE 100 UNIT/ML SUBCUT SCH ×2 (09:28→16:08)
[2020-03-04] MEDS: POTASSIUM CHLORIDE 20 MEQ/15 ML UDCUP PO SCH ×2 (09:36→20:20)
[2020-03-04] MEDS: SILDENAFIL 20 MG TABLET PO SCH ×3 (09:36→20:20)
[2020-03-04] MEDS: AMOXICILLIN/CLAV 500 MG TABLET PO SCH ×2 (09:36→16:10)
[2020-03-04] MEDS: LACTULOSE 20 GM/30 ML UDCUP PO SCH ×2 (09:36→20:20)
[2020-03-04] MEDS: METOPROLOL TARTRATE 25 MG TABLET PO SCH ×2 (09:36→20:20)
[2020-03-04] MEDS: DILTIAZEM 60 MG TABLET PO SCH ×3 (09:37→20:22)
[2020-03-04] MEDS: TAMSULOSIN 0.4 MG CAPSULE PO SCH (09:37)
[2020-03-04] MEDS: SERTRALINE 25 MG TABLET PO SCH (09:37)
[2020-03-04] MEDS: SKIN HEALING OINT (AQUAPHOR) 50 GM TUBE TOP SCH (09:37)
[2020-03-04] MEDS: RIVASTIGMINE 4.6 MG/24 HR PATCH TRANSDERM SCH (09:38)
[2020-03-04] MEDS: PANTOPRAZOLE 40 MG VIAL IV SCH ×2 (09:43→20:38)
[2020-03-04] MEDS: ACETAMINOPHEN 325 MG TABLET PO PRN (12:23)
[2020-03-04] MEDS: DONEPEZIL 10 MG TABLET PO SCH (20:22)
[2020-03-04] MEDS: SIMVASTATIN 20 MG TABLET PO SCH (20:43)
[2020-03-05] MEDS: INSULIN GLARGINE 100 UNIT/ML SUBCUT SCH ×2 (08:10→16:09)
[2020-03-05] MEDS: INSULIN REGULAR 100 UNIT/ML SUBCUT SCH ×4 (08:10→22:23)
[2020-03-05] MEDS: RIVASTIGMINE 4.6 MG/24 HR PATCH TRANSDERM SCH (08:15)
[2020-03-05] MEDS: SERTRALINE 25 MG TABLET PO SCH (08:15)
[2020-03-05] MEDS: AMOXICILLIN/CLAV 500 MG TABLET PO SCH ×2 (08:15→16:08)
[2020-03-05] MEDS: POTASSIUM CHLORIDE 20 MEQ/15 ML UDCUP PO SCH ×2 (08:15→22:20)
[2020-03-05] MEDS: LACTULOSE 20 GM/30 ML UDCUP PO SCH ×2 (08:15→22:20)
[2020-03-05] MEDS: DILTIAZEM 60 MG TABLET PO SCH ×3 (08:15→22:22)
[2020-03-05] MEDS: METOPROLOL TARTRATE 25 MG TABLET PO SCH ×2 (08:16→22:22)
[2020-03-05] MEDS: TAMSULOSIN 0.4 MG CAPSULE PO SCH (08:16)
[2020-03-05] MEDS: SILDENAFIL 20 MG TABLET PO SCH ×3 (08:16→22:21)
[2020-03-05] MEDS ORDERED: oxyCODONE/ACETAMINOPHEN 5-325 MG TABLET PO PRN (09:02)
[2020-03-05] MEDS: PANTOPRAZOLE 40 MG VIAL IV SCH ×2 (09:48→22:21)
[2020-03-05] MEDS: SKIN HEALING OINT (AQUAPHOR) 50 GM TUBE TOP SCH (09:48)
[2020-03-05] MEDS: QUEtiapine 25 MG TABLET PO SCH ×2 (10:12→22:21)
[2020-03-05] MEDS: DONEPEZIL 10 MG TABLET PO SCH (22:21)
[2020-03-05] MEDS: SIMVASTATIN 20 MG TABLET PO SCH (22:22)
[2020-03-06 05:45] LABS: Basophils % 0.3 % (0.0-0.8); Eosinophils # 0.1 10*3/uL (0.0-0.87); Eosinophils % 3.8 % (0.00-10.9); Hematocrit 25.6 VOL% (42.0-52.0); Immature Granulocytes % 0.6 %; Immature Granulocytes Absolute 0.02 #; Lymphocytes # 0.9 10*3/uL (1.4-4.0); Lymphocytes % 27.2 % (21.2-54.2); Mean Corpuscular HGB Conc 31.3 GM/DL (32-36); Mean Corpuscular Volume 103.6 FL (87-102); Mean Platelet Volume 10.1 FL (9.6-12.0); Monocytes % 22.8 % (1.7-12.7); NRBC # 0.03 10*3/uL; Neutrophils % 45.3 % (38.7-73.9); Platelet Count 169 T/CUMM (130-400); Red Blood Count 2.47 MC/CUMM (3.8-5.5); Red Cell Distribution Width 20.1 % (9.3-17.3); White Blood Count 3.5 T/CUMM (4-12)
[2020-03-06 06:10] LABS: Calcium 8.4 MG/DL (8.5-10.1); Osmolality,Calculated 283.3 MOS/KG (273-304)
[2020-03-06 07:10] LABS: Eosinophils 1 % (0-10); Lymphocytes 26 % (20-55); Segmented Neutrophils 56 % (50-85); Total Cells Counted 100
[2020-03-06 07:11] LABS: Hypochromasia 3+; Macrocytosis 2+; Ovalocytes Slight
[2020-03-06 07:12] LABS: Platelet Estimate Adequate; Stomatocytes Few
[2020-03-06] MEDS: INSULIN REGULAR 100 UNIT/ML SUBCUT SCH ×4 (09:13→19:52)
[2020-03-06] MEDS: INSULIN GLARGINE 100 UNIT/ML SUBCUT SCH ×2 (09:14→16:00)
[2020-03-06] MEDS: RIVASTIGMINE 4.6 MG/24 HR PATCH TRANSDERM SCH (09:15)
[2020-03-06] MEDS: METOPROLOL TARTRATE 25 MG TABLET PO SCH ×2 (09:16→21:55)
[2020-03-06] MEDS: QUEtiapine 25 MG TABLET PO SCH ×2 (09:16→21:57)
[2020-03-06] MEDS: SILDENAFIL 20 MG TABLET PO SCH ×3 (09:16→21:56)
[2020-03-06] MEDS: AMOXICILLIN/CLAV 500 MG TABLET PO SCH ×2 (09:16→16:00)
[2020-03-06] MEDS: TAMSULOSIN 0.4 MG CAPSULE PO SCH (09:16)
[2020-03-06] MEDS: SERTRALINE 25 MG TABLET PO SCH (09:17)
[2020-03-06] MEDS: DILTIAZEM 60 MG TABLET PO SCH ×3 (09:17→21:55)
[2020-03-06] MEDS: LACTULOSE 20 GM/30 ML UDCUP PO SCH ×2 (09:17→21:55)
[2020-03-06] MEDS: POTASSIUM CHLORIDE 20 MEQ/15 ML UDCUP PO SCH ×2 (09:17→21:56)
[2020-03-06] MEDS: PANTOPRAZOLE 40 MG VIAL IV SCH ×2 (09:22→21:51)
[2020-03-06] MEDS: SKIN HEALING OINT (AQUAPHOR) 50 GM TUBE TOP SCH (14:12)
[2020-03-06] MEDS: DONEPEZIL 10 MG TABLET PO SCH (21:55)
[2020-03-06] MEDS: SIMVASTATIN 20 MG TABLET PO SCH (21:57)
[2020-03-07 06:22] LABS: Basophils % 0.3 % (0.0-0.8); Eosinophils # 0.2 10*3/uL (0.0-0.87); Eosinophils % 5.4 % (0.00-10.9); Hematocrit 27.9 VOL% (42.0-52.0); Hemoglobin 8.6 GM/DL (14.0-18.0); Immature Granulocytes % 0.3 %; Immature Granulocytes Absolute 0.01 #; Lymphocytes # 0.8 10*3/uL (1.4-4.0); Lymphocytes % 26.3 % (21.2-54.2); Mean Corpuscular HGB Conc 30.8 GM/DL (32-36); Mean Corpuscular Volume 105.3 FL (87-102); Mean Platelet Volume 10.2 FL (9.6-12.0); Monocytes % 22.6 % (1.7-12.7); NRBC # 0.02 10*3/uL; Neutrophils % 45.1 % (38.7-73.9); Platelet Count 160 T/CUMM (130-400); Red Blood Count 2.65 MC/CUMM (3.8-5.5); Red Cell Distribution Width 21.4 % (9.3-17.3)
[2020-03-07 06:40] LABS: Albumin 2.3 G/DL (3.4-5.0); Bilirubin,Total 2.5 MG/DL (0.2-1.0); Calcium 8.5 MG/DL (8.5-10.1); Osmolality,Calculated 284.1 MOS/KG (273-304); Total Protein 6.6 G/DL (6.4-8.3)
[2020-03-07 06:57] LABS: Atypical Lymphocytes Few; Eosinophils 8 % (0-10); Hypochromasia 2+; Lymphocytes 30 % (20-55); Macrocytosis 1+; Platelet Estimate Adequate; Polychromasia Slight; Segmented Neutrophils 45 % (50-85); Total Cells Counted 100
[2020-03-07] MEDS: AMOXICILLIN/CLAV 500 MG TABLET PO SCH (08:00)
[2020-03-07] MEDS: INSULIN REGULAR 100 UNIT/ML SUBCUT SCH ×2 (08:21→12:45)
[2020-03-07] MEDS: METOPROLOL TARTRATE 25 MG TABLET PO SCH (09:00)
[2020-03-07] MEDS: LACTULOSE 20 GM/30 ML UDCUP PO SCH (09:00)
[2020-03-07] MEDS ORDERED: POTASSIUM CHLORIDE 20 MEQ/15 ML UDCUP PO SCH (09:00)
[2020-03-07] MEDS: QUEtiapine 25 MG TABLET PO SCH (09:00)
[2020-03-07] MEDS: SERTRALINE 25 MG TABLET PO SCH (09:00)
[2020-03-07] MEDS: POTASSIUM CHLORIDE 20 MEQ/15 ML UDCUP PO SCH (09:00)
[2020-03-07] MEDS: TAMSULOSIN 0.4 MG CAPSULE PO SCH (09:00)
[2020-03-07] MEDS: DILTIAZEM 60 MG TABLET PO SCH ×2 (09:00→15:00)
[2020-03-07] MEDS: SILDENAFIL 20 MG TABLET PO SCH ×2 (09:00→15:00)
[2020-03-07] MEDS: INSULIN GLARGINE 100 UNIT/ML SUBCUT SCH (10:02)
[2020-03-07] MEDS: PANTOPRAZOLE 40 MG VIAL IV SCH (10:04)
[2020-03-07] MEDS: RIVASTIGMINE 4.6 MG/24 HR PATCH TRANSDERM SCH (10:05)
[2020-03-07] MEDS: SKIN HEALING OINT (AQUAPHOR) 50 GM TUBE TOP SCH (10:11)
[2020-03-07 12:38] VITALS: BP 125/63
== END 2020-03-07 16:26 | disposition home or self-care (01) | DRG 264 ==
LOC: N.ED 16:48 → SUATTDRO 18:20 → N.EDINP 18:20 → N.3E 19:35
PROVIDERS: ADMIT Family Medicine; ATTEND Internal Medicine

== ENCOUNTER 2020-03-19 14:57 | Inpatient (IN) ==
[2020-03-19 16:22] LABS: Basophils % 0.5 % (0.0-0.8); Eosinophils # 0.2 10*3/uL (0.0-0.87); Eosinophils % 5.4 % (0.00-10.9); Hematocrit 44.3 VOL% (42.0-52.0); Hemoglobin 13.8 GM/DL (14.0-18.0); Immature Granulocytes % 0.3 %; Immature Granulocytes Absolute 0.01 #; Lymphocytes % 50.4 % (21.2-54.2); Mean Corpuscular HGB Conc 31.2 GM/DL (32-36); Mean Corpuscular Volume 111.3 FL (87-102); Mean Platelet Volume 11.4 FL (9.6-12.0); Monocytes % 15.6 % (1.7-12.7); NRBC # 0.04 10*3/uL; Neutrophils % 27.8 % (38.7-73.9); Platelet Count 64 T/CUMM (130-400); Red Blood Count 3.98 MC/CUMM (3.8-5.5); Red Cell Distribution Width 23.3 % (9.3-17.3); White Blood Count 3.9 T/CUMM (4-12)
[2020-03-19 16:37] LABS: Bacteria,Urine Occasional /HPF (Few); Bilirubin,Urine Negative (Negative); Blood, Urine Negative (Negative); Glucose,Urine (UA) 50 mg/dL (Negative); Hyaline Casts,Urine 4 /LPF (0-3); Ketones,Urine 5 mg/dL (Negative); Nitrite,Urine Negative (Negative); Protein,Urine Negative; Urine Appearance Slightly Hazy (Clear); Urine Color Amber (Yellow)
[2020-03-19] MEDS ORDERED: FUROSEMIDE 40 MG/4 ML VIAL IV STA (16:51)
[2020-03-19] MEDS ORDERED: cefTRIAXone 1,000 MG in SODIUM CHLORIDE 0.9% 100 ML IV STA (16:51)
[2020-03-19 16:52] LABS: Bilirubin,Total 1.6 MG/DL (0.2-1.0); Calcium 9.5 MG/DL (8.5-10.1); Osmolality,Calculated 356.3 MOS/KG (273-304); Potassium 5.2 MMOL/L (3.5-5.1); Total Protein 7.8 G/DL (6.4-8.3)
[2020-03-19] MEDS ORDERED: SODIUM CHLORIDE 0.9% 500 ML IV STA (17:17)
[2020-03-19] MEDS ORDERED: SODIUM CHLORIDE 0.45% IV ONE (18:19)
[2020-03-19] MEDS ORDERED: BISACODYL 5 MG TABLET PO PRN (18:21)
[2020-03-19] MEDS ORDERED: ACETAMINOPHEN 325 MG TABLET PO PRN (18:21)
[2020-03-19] MEDS ORDERED: DEXTROSE 50% 25 GM/50 ML VIAL IV PRN (18:21)
[2020-03-19] MEDS ORDERED: DOCUSATE SODIUM 100 MG CAPSULE PO PRN (18:21)
[2020-03-19] MEDS ORDERED: ONDANSETRON 4 MG/2 ML VIAL IV PRN (18:21)
[2020-03-19] MEDS ORDERED: GLUCAGON 1 MG VIAL IM PRN (18:21)
[2020-03-19 18:37] LABS: Eosinophils 3 % (0-10); Lymphocytes 51 % (20-55); Segmented Neutrophils 38 % (50-85); Total Cells Counted 100
[2020-03-19 18:38] LABS: Atypical Lymphocytes 1+; Polychromasia 1+; Reactive Lymphocytes 3+
[2020-03-19 18:39] LABS: Macrocytosis 2+
[2020-03-19 18:40] LABS: Anisocytosis 2+; Platelet Estimate Decreased
[2020-03-19 18:54] LABS: INR 1.5; PT Patient Result 15.8 SECS (9.8-11.9)
[2020-03-19] MEDS ORDERED: ENOXAPARIN 30 MG/0.3 ML SYRINGE SUBCUT SCH (21:00)
[2020-03-19] MEDS: SODIUM CHLORIDE 0.45% 1,000 ML IV SCH (21:12)
[2020-03-19] MEDS: INSULIN REGULAR 100 UNIT/ML SUBCUT SCH (22:13)
[2020-03-20] MEDS: SODIUM CHLORIDE 0.45% 1,000 ML IV SCH ×2 (05:43→13:46)
[2020-03-20 06:22] LABS: Basophils % 0.6 % (0.0-0.8); Eosinophils # 0.3 10*3/uL (0.0-0.87); Eosinophils % 7.6 % (0.00-10.9); Hematocrit 38.3 VOL% (42.0-52.0); Hemoglobin 11.4 GM/DL (14.0-18.0); Lymphocytes # 1.4 10*3/uL (1.4-4.0); Lymphocytes % 41.6 % (21.2-54.2); Mean Corpuscular HGB Conc 29.8 GM/DL (32-36); Mean Corpuscular Volume 113.6 FL (87-102); Mean Platelet Volume 12.5 FL (9.6-12.0); Monocytes % 14.2 % (1.7-12.7); NRBC # 0.03 10*3/uL; Platelet Count 53 T/CUMM (130-400); Red Blood Count 3.37 MC/CUMM (3.8-5.5); Red Cell Distribution Width 22.8 % (9.3-17.3); White Blood Count 3.4 T/CUMM (4-12)
[2020-03-20 06:24] LABS: Calcium 8.6 MG/DL (8.5-10.1); Osmolality,Calculated 354.5 MOS/KG (273-304)
[2020-03-20 06:58] LABS: Anisocytosis Slight; Macrocytosis 2+; Platelet Estimate Decreased; Spherocytes Few
[2020-03-20 06:59] LABS: Polychromasia Slight
[2020-03-20] MEDS: PANTOPRAZOLE 40 MG TABLET PO SCH (08:38)
[2020-03-20] MEDS: INSULIN REGULAR 100 UNIT/ML SUBCUT SCH ×5 (08:39→21:14)
[2020-03-20] MEDS: HALOPERIDOL 5 MG/ML AMP IM PRN ×2 (12:15→17:52)
[2020-03-20] MEDS ORDERED: SODIUM POLYSTYRENE SULFATE 15 GM/60 ML BOTTLE PO ONE (12:24)
[2020-03-20] MEDS: DEXTROSE 5% 1,000 ML IV SCH ×2 (13:44→21:17)
[2020-03-20] MEDS: cefTRIAXone 2,000 MG in SYRINGE 1 EACH IV SCH (17:47)
[2020-03-21] MEDS: DEXTROSE 5% 1,000 ML IV SCH ×2 (05:39→12:41)
[2020-03-21 06:41] LABS: Basophils % 0.3 % (0.0-0.8); Eosinophils # 0.2 10*3/uL (0.0-0.87); Eosinophils % 7.5 % (0.00-10.9); Hemoglobin 10.6 GM/DL (14.0-18.0); Lymphocytes # 1.1 10*3/uL (1.4-4.0); Mean Corpuscular HGB Conc 30.3 GM/DL (32-36); Mean Corpuscular Volume 113.6 FL (87-102); Mean Platelet Volume 14.1 FL (9.6-12.0); NRBC # 0.02 10*3/uL; Neutrophils % 43.2 % (38.7-73.9); Platelet Count 44 T/CUMM (130-400); Red Blood Count 3.08 MC/CUMM (3.8-5.5); Red Cell Distribution Width 22.3 % (9.3-17.3); White Blood Count 2.9 T/CUMM (4-12)
[2020-03-21 06:58] LABS: Calcium 8.7 MG/DL (8.5-10.1); Osmolality,Calculated 350.2 MOS/KG (273-304)
[2020-03-21 07:09] LABS: Band Neutrophils 3 % (0-10); Eosinophils 4 % (0-10); Hypochromasia 1+; Lymphocytes 44 % (20-55); Segmented Neutrophils 39 % (50-85); Total Cells Counted 100
[2020-03-21 07:10] LABS: Macrocytosis 1+; Platelet Estimate Decreased
[2020-03-21] MEDS: PANTOPRAZOLE 40 MG TABLET PO SCH (08:59)
[2020-03-21] MEDS: INSULIN REGULAR 100 UNIT/ML SUBCUT SCH ×3 (08:59→16:37)
[2020-03-21] MEDS: cefTRIAXone 2,000 MG in SYRINGE 1 EACH IV SCH (17:42)
[2020-03-22] MEDS: INSULIN REGULAR 100 UNIT/ML SUBCUT SCH ×5 (01:10→22:36)
[2020-03-22] MEDS: DEXTROSE 5% 1,000 ML IV SCH ×3 (01:10→14:22)
[2020-03-22 06:11] LABS: Eosinophils # 0.2 10*3/uL (0.0-0.87); Eosinophils % 8.8 % (0.00-10.9); Hematocrit 34.9 VOL% (42.0-52.0); Hemoglobin 10.6 GM/DL (14.0-18.0); Immature Granulocytes % 0.4 %; Immature Granulocytes Absolute 0.01 #; Lymphocytes # 1.1 10*3/uL (1.4-4.0); Lymphocytes % 39.2 % (21.2-54.2); Mean Corpuscular HGB Conc 30.4 GM/DL (32-36); Mean Corpuscular Volume 109.1 FL (87-102); Mean Platelet Volume 12.5 FL (9.6-12.0); Monocytes % 11.7 % (1.7-12.7); Neutrophils % 39.9 % (38.7-73.9); Red Cell Distribution Width 21.7 % (9.3-17.3); White Blood Count 2.7 T/CUMM (4-12)
[2020-03-22 06:23] LABS: Calcium 8.5 MG/DL (8.5-10.1); Osmolality,Calculated 334.1 MOS/KG (273-304); Potassium 4.6 MMOL/L (3.5-5.1)
[2020-03-22 06:25] LABS: Platelet Count 39 T/CUMM (130-400)
[2020-03-22 06:36] LABS: Eosinophils 9 % (0-10); Hypochromasia 1+; Lymphocytes 33 % (20-55); Microcytosis 1+; Platelet Estimate Decreased; Segmented Neutrophils 44 % (50-85); Total Cells Counted 100
[2020-03-22 06:43] LABS: Free T4 (Free Thyroxine) 1.16 NG/DL (0.76-1.46); Thyroid Stimulating Hormone 1.58 uIU/ml (0.358-3.74)
[2020-03-22] MEDS: PANTOPRAZOLE 40 MG TABLET PO SCH (08:32)
[2020-03-22] MEDS: cefTRIAXone 2,000 MG in SYRINGE 1 EACH IV SCH (17:45)
[2020-03-22] MEDS: HALOPERIDOL 5 MG/ML AMP IM PRN (17:45)
[2020-03-22] MEDS ORDERED: SODIUM CHLORIDE 0.9% 1,000 ML IV PRN (20:35)
[2020-03-23] MEDS: DEXTROSE 5% 1,000 ML IV SCH ×5 (00:37→21:41)
[2020-03-23 06:17] LABS: INR 1.3; PT Patient Result 13.9 SECS (9.8-11.9); Partial Thromboplastin Time 37.3 SECS (23.9-33.8)
[2020-03-23 06:30] LABS: Basophils % 0.4 % (0.0-0.8); Eosinophils # 0.2 10*3/uL (0.0-0.87); Eosinophils % 7.9 % (0.00-10.9); Hematocrit 33.6 VOL% (42.0-52.0); Hemoglobin 10.5 GM/DL (14.0-18.0); Immature Granulocytes % 0.4 %; Immature Granulocytes Absolute 0.01 #; Lymphocytes # 0.9 10*3/uL (1.4-4.0); Lymphocytes % 32.1 % (21.2-54.2); Mean Corpuscular HGB Conc 31.3 GM/DL (32-36); Mean Corpuscular Volume 107.3 FL (87-102); Mean Platelet Volume 12.5 FL (9.6-12.0); Monocytes % 13.6 % (1.7-12.7); Neutrophils % 45.6 % (38.7-73.9); Red Blood Count 3.13 MC/CUMM (3.8-5.5); Red Cell Distribution Width 21.2 % (9.3-17.3); White Blood Count 2.7 T/CUMM (4-12)
[2020-03-23 06:34] LABS: Calcium 8.5 MG/DL (8.5-10.1); Osmolality,Calculated 326.8 MOS/KG (273-304); Potassium 4.5 MMOL/L (3.5-5.1)
[2020-03-23 06:48] LABS: Calcium 8.4 MG/DL (8.5-10.1); Osmolality,Calculated 325.8 MOS/KG (273-304); Potassium 4.4 MMOL/L (3.5-5.1)
[2020-03-23 07:03] LABS: Platelet Count 37 T/CUMM (130-400)
[2020-03-23 07:07] LABS: Eosinophils 9 % (0-10); Hypochromasia 1+; Lymphocytes 29 % (20-55); Microcytosis 1+; Platelet Estimate Decreased; Segmented Neutrophils 50 % (50-85); Total Cells Counted 100
[2020-03-23] MEDS ORDERED: LACTATED RINGERS 1,000 ML IV SCH (08:00)
[2020-03-23] MEDS: INSULIN REGULAR 100 UNIT/ML SUBCUT SCH ×4 (09:38→21:40)
[2020-03-23] MEDS: PANTOPRAZOLE 40 MG VIAL IV SCH (09:38)
[2020-03-23 10:42] LABS: Alanine Aminotransferase 15 U/L (16-61); Albumin 2.4 G/DL (3.4-5.0); Alkaline Phosphatase 85 U/L (45-117); Aspartate Amino Transferase 26 U/L (0-37); Haptoglobin < 8.0 MG/DL (30-200); Total Protein 6.5 G/DL (6.4-8.3)
[2020-03-23] MEDS: HALOPERIDOL 5 MG/ML AMP IM PRN (12:29)
[2020-03-23 15:35] LABS: INR 1.3; PT Patient Result 13.8 SECS (9.8-11.9)
[2020-03-23] MEDS: cefTRIAXone 2,000 MG in SYRINGE 1 EACH IV SCH (17:04)
[2020-03-24] MEDS: DEXTROSE 5% 1,000 ML IV SCH ×4 (05:29→21:02)
[2020-03-24 07:02] LABS: Eosinophils # 0.3 10*3/uL (0.0-0.87); Hematocrit 31.8 VOL% (42.0-52.0); Hemoglobin 9.6 GM/DL (14.0-18.0); Lymphocytes # 0.9 10*3/uL (1.4-4.0); Lymphocytes % 29.9 % (21.2-54.2); Mean Corpuscular HGB Conc 30.2 GM/DL (32-36); Mean Corpuscular Volume 109.7 FL (87-102); Monocytes % 15.9 % (1.7-12.7); Neutrophils % 46.2 % (38.7-73.9); Red Cell Distribution Width 20.7 % (9.3-17.3); White Blood Count 3.1 T/CUMM (4-12)
[2020-03-24 07:07] LABS: Platelet Count 57 T/CUMM (130-400)
[2020-03-24 07:23] LABS: Eosinophils 6 % (0-10); Hypochromasia 1+; Lymphocytes 23 % (20-55); Microcytosis 1+; Ovalocytes Slight; Platelet Estimate Decreased; Segmented Neutrophils 55 % (50-85); Total Cells Counted 100
[2020-03-24 07:42] LABS: Calcium 8.7 MG/DL (8.5-10.1); Osmolality,Calculated 320.8 MOS/KG (273-304); Potassium 4.5 MMOL/L (3.5-5.1)
[2020-03-24] MEDS: PANTOPRAZOLE 40 MG VIAL IV SCH (08:17)
[2020-03-24] MEDS: INSULIN REGULAR 100 UNIT/ML SUBCUT SCH ×4 (08:17→21:02)
[2020-03-24] MEDS: HALOPERIDOL 5 MG/ML AMP IM PRN (11:48)
[2020-03-24] MEDS: cefTRIAXone 2,000 MG in SYRINGE 1 EACH IV SCH (17:06)
[2020-03-25] MEDS: DEXTROSE 5% 1,000 ML IV SCH ×3 (05:28→21:11)
[2020-03-25 06:23] LABS: INR 1.2; PT Patient Result 12.7 SECS (9.8-11.9)
[2020-03-25 06:30] LABS: Calcium 8.4 MG/DL (8.5-10.1); Osmolality,Calculated 299.8 MOS/KG (273-304); Potassium 3.7 MMOL/L (3.5-5.1)
[2020-03-25 06:37] LABS: Basophils % 0.4 % (0.0-0.8); Eosinophils # 0.2 10*3/uL (0.0-0.87); Eosinophils % 8.9 % (0.00-10.9); Hematocrit 37.9 VOL% (42.0-52.0); Hemoglobin 11.7 GM/DL (14.0-18.0); Immature Granulocytes % 13.9 %; Immature Granulocytes Absolute 0.36 #; Lymphocytes # 0.6 10*3/uL (1.4-4.0); Lymphocytes % 24.7 % (21.2-54.2); Mean Corpuscular HGB Conc 30.9 GM/DL (32-36); Mean Corpuscular Volume 109.5 FL (87-102); Mean Platelet Volume 11.9 FL (9.6-12.0); Monocytes % 19.3 % (1.7-12.7); Neutrophils % 32.8 % (38.7-73.9); Platelet Count 44 T/CUMM (130-400); Red Blood Count 3.46 MC/CUMM (3.8-5.5); Red Cell Distribution Width 20.6 % (9.3-17.3); White Blood Count 2.6 T/CUMM (4-12)
[2020-03-25 06:53] LABS: Eosinophils 11 % (0-10); Lymphocytes 35 % (20-55); Segmented Neutrophils 46 % (50-85); Total Cells Counted 100
[2020-03-25 06:54] LABS: Hypochromasia 1+; Microcytosis 1+; Platelet Estimate Decreased
[2020-03-25 06:55] LABS: Atypical Lymphocytes Few
[2020-03-25] MEDS ORDERED: SODIUM CHLORIDE 0.9% 1,000 ML IV PRN (08:06)
[2020-03-25] MEDS: PANTOPRAZOLE 40 MG VIAL IV SCH (10:07)
[2020-03-25] MEDS: INSULIN REGULAR 100 UNIT/ML SUBCUT SCH ×4 (10:26→21:23)
[2020-03-25] MEDS: cefTRIAXone 2,000 MG in SYRINGE 1 EACH IV SCH (17:32)
[2020-03-26] MEDS: HALOPERIDOL 5 MG/ML AMP IM PRN (00:07)
[2020-03-26] MEDS: DEXTROSE 5% 1,000 ML IV SCH ×3 (05:26→20:55)
[2020-03-26 05:50] LABS: Eosinophils # 0.3 10*3/uL (0.0-0.87); Eosinophils % 10.4 % (0.00-10.9); Hematocrit 30.4 VOL% (42.0-52.0); Hemoglobin 10.1 GM/DL (14.0-18.0); Lymphocytes # 0.6 10*3/uL (1.4-4.0); Lymphocytes % 22.8 % (21.2-54.2); Mean Corpuscular HGB Conc 33.2 GM/DL (32-36); Mean Platelet Volume 12.3 FL (9.6-12.0); Monocytes % 22.8 % (1.7-12.7); Red Blood Count 3.01 MC/CUMM (3.8-5.5); White Blood Count 2.7 T/CUMM (4-12)
[2020-03-26 05:55] LABS: Platelet Count 62 T/CUMM (130-400)
[2020-03-26 06:04] LABS: Calcium 8.5 MG/DL (8.5-10.1); Osmolality,Calculated 291.2 MOS/KG (273-304); Potassium 3.5 MMOL/L (3.5-5.1)
[2020-03-26 06:49] LABS: Eosinophils 8 % (0-10); Lymphocytes 33 % (20-55); Segmented Neutrophils 44 % (50-85); Total Cells Counted 100
[2020-03-26 06:50] LABS: Anisocytosis 1+; Atypical Lymphocytes Few; Hypochromasia 1+; Microcytosis 1+
[2020-03-26 06:51] LABS: Ovalocytes Slight; Platelet Estimate Decreased
[2020-03-26] MEDS: INSULIN REGULAR 100 UNIT/ML SUBCUT SCH ×4 (09:27→20:55)
[2020-03-26] MEDS: PANTOPRAZOLE 40 MG VIAL IV SCH (09:28)
[2020-03-26] MEDS: cefTRIAXone 2,000 MG in SYRINGE 1 EACH IV SCH (17:48)
[2020-03-27] MEDS: HALOPERIDOL 5 MG/ML AMP IM PRN (00:01)
[2020-03-27 05:12] LABS: Basophils % 0.3 % (0.0-0.8); Eosinophils # 0.3 10*3/uL (0.0-0.87); Eosinophils % 9.4 % (0.00-10.9); Hemoglobin 9.9 GM/DL (14.0-18.0); Immature Granulocytes % 8.7 %; Immature Granulocytes Absolute 0.27 #; Lymphocytes # 0.9 10*3/uL (1.4-4.0); Lymphocytes % 28.1 % (21.2-54.2); Mean Corpuscular HGB Conc 31.9 GM/DL (32-36); Mean Corpuscular Volume 104.4 FL (87-102); Mean Platelet Volume 11.4 FL (9.6-12.0); Monocytes % 28.7 % (1.7-12.7); Neutrophils % 24.8 % (38.7-73.9); Red Blood Count 2.97 MC/CUMM (3.8-5.5); Red Cell Distribution Width 20.1 % (9.3-17.3); White Blood Count 3.1 T/CUMM (4-12)
[2020-03-27 05:15] LABS: Platelet Count 84 T/CUMM (130-400)
[2020-03-27 05:45] LABS: Calcium 8.4 MG/DL (8.5-10.1); Osmolality,Calculated 284.4 MOS/KG (273-304)
[2020-03-27 05:46] LABS: Band Neutrophils 3 % (0-10); Eosinophils 8 % (0-10); Hypochromasia Slight; Lymphocytes 36 % (20-55); Macrocytosis Slight; Nucleated Red Blood Cells 7 (0-5); Platelet Estimate Decreased; Segmented Neutrophils 38 % (50-85); Total Cells Counted 100
[2020-03-27] MEDS: DEXTROSE 5% 1,000 ML IV SCH ×3 (05:53→20:54)
[2020-03-27] MEDS: PANTOPRAZOLE 40 MG VIAL IV SCH (09:57)
[2020-03-27] MEDS: INSULIN REGULAR 100 UNIT/ML SUBCUT SCH ×4 (09:57→21:43)
[2020-03-27] MEDS: cefTRIAXone 1,000 MG in SYRINGE 1 EACH IV SCH (16:25)
[2020-03-27] MEDS: AZITHROMYCIN INJ 500 MG in SODIUM CHLORIDE 0.9% 250 ML IV SCH (16:26)
[2020-03-28] MEDS: DEXTROSE 5% 1,000 ML IV SCH ×3 (05:22→23:02)
[2020-03-28 06:31] LABS: Eosinophils # 0.2 10*3/uL (0.0-0.87); Eosinophils % 7.7 % (0.00-10.9); Hematocrit 30.5 VOL% (42.0-52.0); Hemoglobin 9.7 GM/DL (14.0-18.0); Immature Granulocytes % 13.9 %; Lymphocytes # 0.8 10*3/uL (1.4-4.0); Lymphocytes % 28.6 % (21.2-54.2); Mean Corpuscular HGB Conc 31.8 GM/DL (32-36); Mean Corpuscular Volume 103.4 FL (87-102); Mean Platelet Volume 10.8 FL (9.6-12.0); Neutrophils % 19.8 % (38.7-73.9); Red Blood Count 2.95 MC/CUMM (3.8-5.5); Red Cell Distribution Width 19.9 % (9.3-17.3); White Blood Count 2.9 T/CUMM (4-12)
[2020-03-28 06:36] LABS: Platelet Count 131 T/CUMM (130-400)
[2020-03-28 06:52] LABS: Calcium 8.7 MG/DL (8.5-10.1); Osmolality,Calculated 282.2 MOS/KG (273-304); Potassium 3.8 MMOL/L (3.5-5.1)
[2020-03-28 07:01] LABS: Atypical Lymphocytes Few; Eosinophils 6 % (0-10); Hypochromasia 1+; Lymphocytes 22 % (20-55); Microcytosis 1+; Platelet Estimate Adequate; Segmented Neutrophils 44 % (50-85); Total Cells Counted 100
[2020-03-28] MEDS: LACTATED RINGERS 1,000 ML IV SCH ×3 (08:23→10:26)
[2020-03-28] MEDS ORDERED: ETOMIDATE 20 MG/10 ML VIAL IV ONE (09:02)
[2020-03-28] MEDS ORDERED: propofoL 200 MG/20 ML VIAL IV ONE (09:02)
[2020-03-28] MEDS ORDERED: LIDOCAINE 2% 5 ML VIAL ONE (09:02)
[2020-03-28] MEDS: INSULIN REGULAR 100 UNIT/ML SUBCUT SCH ×4 (09:59→21:36)
[2020-03-28] MEDS: PANTOPRAZOLE 40 MG VIAL IV SCH (09:59)
[2020-03-28] MEDS: HALOPERIDOL 5 MG/ML AMP IM PRN (10:06)
[2020-03-28 11:17] LABS: INR 1.3; PT Patient Result 13.3 SECS (9.8-11.9)
[2020-03-28] MEDS: QUEtiapine 25 MG TABLET PO SCH ×2 (14:34→21:35)
[2020-03-28] MEDS: cefTRIAXone 1,000 MG in SYRINGE 1 EACH IV SCH (14:34)
[2020-03-28] MEDS: AZITHROMYCIN INJ 500 MG in SODIUM CHLORIDE 0.9% 250 ML IV SCH (14:40)
[2020-03-29 05:28] LABS: Eosinophils # 0.2 10*3/uL (0.0-0.87); Eosinophils % 9.2 % (0.00-10.9); Hematocrit 30.2 VOL% (42.0-52.0); Hemoglobin 9.8 GM/DL (14.0-18.0); Immature Granulocytes % 0.4 %; Immature Granulocytes Absolute 0.01 #; Lymphocytes % 39.4 % (21.2-54.2); Mean Corpuscular HGB Conc 32.5 GM/DL (32-36); Mean Corpuscular Volume 102.4 FL (87-102); Mean Platelet Volume 10.5 FL (9.6-12.0); Monocytes % 27.3 % (1.7-12.7); Neutrophils % 23.7 % (38.7-73.9); Platelet Count 146 T/CUMM (130-400); Red Blood Count 2.95 MC/CUMM (3.8-5.5); Red Cell Distribution Width 19.7 % (9.3-17.3); White Blood Count 2.5 T/CUMM (4-12)
[2020-03-29] MEDS: DEXTROSE 5% 1,000 ML IV SCH ×3 (05:36→15:10)
[2020-03-29 05:46] LABS: Calcium 8.4 MG/DL (8.5-10.1); Osmolality,Calculated 275.5 MOS/KG (273-304); Potassium 3.7 MMOL/L (3.5-5.1)
[2020-03-29 05:47] LABS: Calcium 8.7 MG/DL (8.5-10.1); Osmolality,Calculated 279.2 MOS/KG (273-304); Potassium 3.7 MMOL/L (3.5-5.1)
[2020-03-29 05:51] LABS: Atypical Lymphocytes Few; Eosinophils 14 % (0-10); Hypochromasia 1+; Lymphocytes 34 % (20-55); Microcytosis 1+; Platelet Estimate Adequate; Segmented Neutrophils 24 % (50-85); Total Cells Counted 100
[2020-03-29] MEDS: LACTATED RINGERS 1,000 ML IV SCH (09:53)
[2020-03-29] MEDS: INSULIN REGULAR 100 UNIT/ML SUBCUT SCH ×4 (09:56→21:35)
[2020-03-29] MEDS: PANTOPRAZOLE 40 MG VIAL IV SCH (09:57)
[2020-03-29] MEDS: QUEtiapine 25 MG TABLET PO SCH ×2 (12:55→21:34)
[2020-03-29] MEDS: CLOPIDOGREL 75 MG TABLET PO SCH (12:55)
[2020-03-29] MEDS: cefTRIAXone 1,000 MG in SYRINGE 1 EACH IV SCH (15:11)
[2020-03-29] MEDS: AZITHROMYCIN INJ 500 MG in SODIUM CHLORIDE 0.9% 250 ML IV SCH (15:14)
[2020-03-30 05:16] LABS: Eosinophils # 0.2 10*3/uL (0.0-0.87); Hematocrit 27.8 VOL% (42.0-52.0); Hemoglobin 9.5 GM/DL (14.0-18.0); Immature Granulocytes % 0.5 %; Immature Granulocytes Absolute 0.01 #; Lymphocytes # 0.8 10*3/uL (1.4-4.0); Lymphocytes % 39.8 % (21.2-54.2); Mean Corpuscular HGB Conc 34.2 GM/DL (32-36); Mean Corpuscular Volume 99.3 FL (87-102); Mean Platelet Volume 11.1 FL (9.6-12.0); Monocytes % 26.9 % (1.7-12.7); Neutrophils % 24.8 % (38.7-73.9); Platelet Count 135 T/CUMM (130-400); Red Cell Distribution Width 19.4 % (9.3-17.3)
[2020-03-30 05:31] LABS: Calcium 8.4 MG/DL (8.5-10.1); Osmolality,Calculated 281.1 MOS/KG (273-304); Potassium 3.8 MMOL/L (3.5-5.1)
[2020-03-30 05:51] LABS: Atypical Lymphocytes Few; Eosinophils 7 % (0-10); Hypochromasia 1+; Lymphocytes 37 % (20-55); Metamyelocytes 1 %; Microcytosis 1+; Myelocytes 1 %; Ovalocytes Slight; Promyelocytes 1 %; Segmented Neutrophils 33 % (50-85); Total Cells Counted 100
[2020-03-30 05:52] LABS: Platelet Estimate Adequate
[2020-03-30] MEDS: INSULIN REGULAR 100 UNIT/ML SUBCUT SCH ×4 (10:22→21:26)
[2020-03-30] MEDS: QUEtiapine 25 MG TABLET PO SCH ×2 (10:23→21:26)
[2020-03-30] MEDS: CLOPIDOGREL 75 MG TABLET PO SCH (10:23)
[2020-03-30] MEDS: PANTOPRAZOLE 40 MG VIAL IV SCH (10:24)
[2020-03-30] MEDS: DESITIN 4OZ/NYSTATIN 15 GRAM MIXTURE PASTE TOP SCH ×2 (15:20→21:26)
[2020-03-30] MEDS: cefTRIAXone 1,000 MG in SYRINGE 1 EACH IV SCH (15:20)
[2020-03-30] MEDS: AZITHROMYCIN INJ 500 MG in SODIUM CHLORIDE 0.9% 250 ML IV SCH (15:26)
[2020-03-31 05:06] LABS: Basophils % 0.5 % (0.0-0.8); Eosinophils # 0.1 10*3/uL (0.0-0.87); Eosinophils % 6.4 % (0.00-10.9); Hemoglobin 9.6 GM/DL (14.0-18.0); Immature Granulocytes % 0.5 %; Immature Granulocytes Absolute 0.01 #; Lymphocytes # 0.9 10*3/uL (1.4-4.0); Lymphocytes % 39.4 % (21.2-54.2); Mean Corpuscular HGB Conc 33.1 GM/DL (32-36); Mean Corpuscular Volume 99.7 FL (87-102); Mean Platelet Volume 10.6 FL (9.6-12.0); Monocytes % 25.2 % (1.7-12.7); Platelet Count 142 T/CUMM (130-400); Red Blood Count 2.91 MC/CUMM (3.8-5.5); Red Cell Distribution Width 19.3 % (9.3-17.3); White Blood Count 2.2 T/CUMM (4-12)
[2020-03-31 05:30] LABS: Calcium 8.6 MG/DL (8.5-10.1); Potassium 4.1 MMOL/L (3.5-5.1)
[2020-03-31 05:33] LABS: Eosinophils 7 % (0-10); Lymphocytes 43 % (20-55); Segmented Neutrophils 33 % (50-85); Total Cells Counted 100
[2020-03-31 05:34] LABS: Atypical Lymphocytes Few; Hypochromasia 1+; Microcytosis 1+; Ovalocytes Slight
[2020-03-31 05:35] LABS: Platelet Estimate Adequate
[2020-03-31] MEDS: CLOPIDOGREL 75 MG TABLET PO SCH (10:09)
[2020-03-31] MEDS: QUEtiapine 25 MG TABLET PO SCH (10:10)
[2020-03-31] MEDS: INSULIN REGULAR 100 UNIT/ML SUBCUT SCH ×2 (10:13→14:58)
[2020-03-31] MEDS: PANTOPRAZOLE 40 MG VIAL IV SCH (10:14)
[2020-03-31] MEDS: DESITIN 4OZ/NYSTATIN 15 GRAM MIXTURE PASTE TOP SCH (14:58)
[2020-03-31] MEDS: cefTRIAXone 1,000 MG in SYRINGE 1 EACH IV SCH (14:59)
[2020-03-31] MEDS: AZITHROMYCIN INJ 500 MG in SODIUM CHLORIDE 0.9% 250 ML IV SCH (15:14)
[2020-03-31 15:50] VITALS: BP 137/74
== END 2020-04-06 00:08 | disposition home or self-care (01) | DRG 682 ==
LOC: EDUNIT# → EDBD → N.ED 14:57 → N.EDINP 18:21 → SUATTDRO 18:21 → N.EDINP 20:17 → N.TELEN 21:05 → N.ADMINP 21:05 → UNDODISIN 03-31 15:55 → N.SDSINP 03-31 19:38 → N.2E 03-31 19:38
PROVIDERS: ADMIT Internal Medicine; ATTEND Internal Medicine
PROC: EGDWPEG (ICD-10-PCS; 2020-03-28 07:20)